=== PATIENT | male | born 1940 | race Two or more races ===

== ENCOUNTER 2016-11-19 10:30 | Outpatient (CLI) | payer OTHER, MEDICARE | END 2016-11-19 23:59 | disposition home or self-care (01) | LOC: WOU 10:30 | PROVIDERS: ATTEND Podiatrist Foot & Ankle Surgery | DX: L84 Corns and callosities (principal); B35.1 Tinea unguium; M20.5X2 Other deformities of toe(s) (acquired), left foot; R60.0 Localized edema; M79.672 Pain in left foot; Z79.01 Long term (current) use of anticoagulants; Z79.899 Other long term (current) drug therapy; Z96.651 Presence of right artificial knee joint; I48.91 Unspecified atrial fibrillation; Z82.3 Family history of stroke; Z82.61 Family history of arthritis; Z82.49 Family history of ischemic heart disease and other diseases of the circulatory system | CPT/HCPCS: G0463 ==

== ENCOUNTER 2016-11-21 12:34 | Outpatient (CLI) | payer OTHER, MEDICARE | END 2016-11-21 23:59 | disposition home or self-care (01) | LOC: RAD 12:34 | PROVIDERS: ATTEND Podiatrist Foot & Ankle Surgery | DX: M19.072 Primary osteoarthritis, left ankle and foot (principal); M77.32 Calcaneal spur, left foot; M21.42 Flat foot [pes planus] (acquired), left foot | CPT/HCPCS: 73630-TC ==

== ENCOUNTER 2016-11-26 11:18 | Outpatient (CLI) | payer OTHER, MEDICARE | END 2016-11-26 23:59 | disposition home or self-care (01) | LOC: WOU 11:18 | PROVIDERS: ATTEND Podiatrist Foot & Ankle Surgery | DX: M20.42 Other hammer toe(s) (acquired), left foot (principal); L84 Corns and callosities; I25.10 Atherosclerotic heart disease of native coronary artery without angina pectoris; R60.0 Localized edema; S93.115A Dislocation of interphalangeal joint of left lesser toe(s), initial encounter; X58.XXXA Exposure to other specified factors, initial encounter; Y92.89 Other specified places as the place of occurrence of the external cause | CPT/HCPCS: G0463 ==

== ENCOUNTER 2016-12-17 05:22 | Day surgery (SDC) | payer OTHER, MEDICARE ==
[2016-12-17] MEDS ORDERED: ANESTHESIA TRAY IN PYXIS 1 EA TRAY MC ONE (06:54)
[2016-12-17] MEDS ORDERED: FENTANYL PF 100MCG/2ML AMPUL ONE (07:17)
[2016-12-17] MEDS ORDERED: MIDAZOLAM HCL 2 MG/2ML VIAL ONE (07:18)
[2016-12-17] MEDS ORDERED: SUCCINYLCHOLINE CHLORIDE 20 MG/ML VIAL ONE (07:18)
[2016-12-17] MEDS ORDERED: LIDOCAINE 0.5%-EPI 1:200,000 50 ML VIAL ONE (07:31)
[2016-12-17] MEDS ORDERED: BUPIVACAINE 0.5 % PF 150 MG/30 ML VIAL ONE (07:31)
[2016-12-17] MEDS ORDERED: BACITRACIN ZINC OINT (15 GM) 15 GM TUBE TP ONE (08:39)
[2016-12-17] MEDS ORDERED: HYDROCODONE/APAP 5/325MG 1 EACH TABLET ONE (10:33)
[2016-12-17] MEDS ORDERED: HYDROCODONE/APAP 5/325MG 1 EACH TABLET PO PRN (11:30)
== END 2016-12-17 10:50 | disposition home or self-care (01) ==
LOC: DS 05:22
PROVIDERS: ATTEND Podiatrist Foot & Ankle Surgery
DX: M20.42 Other hammer toe(s) (acquired), left foot (principal); L84 Corns and callosities; M24.575 Contracture, left foot; M24.875 Other specific joint derangements left foot, not elsewhere classified; I48.91 Unspecified atrial fibrillation; I10 Essential (primary) hypertension
CPT/HCPCS: 28285; 28899; 93005; A4606; A6402 ×2; J0330; J0690; J2250; J3010; J3490 ×2

== ENCOUNTER 2016-12-24 13:00 | Outpatient (CLI) | payer OTHER, MEDICARE | END 2016-12-24 23:59 | disposition home or self-care (01) | LOC: WOU 13:00 | PROVIDERS: ATTEND Podiatrist Foot & Ankle Surgery | DX: Z47.89 Encounter for other orthopedic aftercare (principal); R60.0 Localized edema | CPT/HCPCS: A6402; G0463 ==

== ENCOUNTER 2016-12-31 12:57 | Outpatient (CLI) | payer OTHER, MEDICARE | END 2016-12-31 23:59 | disposition home or self-care (01) | LOC: WOU 12:57 | PROVIDERS: ATTEND Podiatrist Foot & Ankle Surgery | PROC: 2W5 Placement, Anatomical Regions, Removal (ICD-10-PCS; principal; 2016-12-31) | DX: T84.223A Displacement of internal fixation device of bones of foot and toes, initial encounter (principal); Y79.3 Surgical instruments, materials and orthopedic devices (including sutures) associated with adverse incidents; Y92.89 Other specified places as the place of occurrence of the external cause; I87.2 Venous insufficiency (chronic) (peripheral); R60.0 Localized edema; M20.42 Other hammer toe(s) (acquired), left foot | CPT/HCPCS: A6402; G0463 ==

== ENCOUNTER 2017-01-14 11:35 | Outpatient (CLI) | payer OTHER, MEDICARE | END 2017-01-14 23:59 | disposition home or self-care (01) | LOC: WOU 11:35 | PROVIDERS: ATTEND Podiatrist Foot & Ankle Surgery | DX: T81.89XA Other complications of procedures, not elsewhere classified, initial encounter (principal); L97.522 Non-pressure chronic ulcer of other part of left foot with fat layer exposed; Z96.698 Presence of other orthopedic joint implants | CPT/HCPCS: 11042; A6402 ==

== ENCOUNTER 2017-01-21 12:45 | Outpatient (CLI) | payer OTHER, MEDICARE | END 2017-01-21 23:59 | disposition home or self-care (01) | LOC: WOU 12:45 | PROVIDERS: ATTEND Podiatrist Foot & Ankle Surgery | DX: T81.89XA Other complications of procedures, not elsewhere classified, initial encounter (principal); L60.0 Ingrowing nail; R60.0 Localized edema; L60.3 Nail dystrophy | CPT/HCPCS: 11042; 11730; A6402 ==

== ENCOUNTER 2017-01-28 12:55 | Outpatient (CLI) | payer OTHER, MEDICARE | END 2017-01-28 23:59 | disposition home or self-care (01) | LOC: WOU 12:55 | PROVIDERS: ATTEND Podiatrist Foot & Ankle Surgery | DX: Z48.89 Encounter for other specified surgical aftercare (principal); R60.0 Localized edema | CPT/HCPCS: G0463 ==

== ENCOUNTER 2017-03-11 13:10 | Outpatient (CLI) | payer OTHER, MEDICARE | END 2017-03-11 23:59 | disposition home or self-care (01) | LOC: WOU 13:10 | PROVIDERS: ATTEND Podiatrist Foot & Ankle Surgery | DX: Z09 Encounter for follow-up examination after completed treatment for conditions other than malignant neoplasm (principal); R60.0 Localized edema | CPT/HCPCS: G0463 ==

== ENCOUNTER 2017-03-13 15:32 | Outpatient (CLI) | payer OTHER, MEDICARE | END 2017-03-13 23:59 | disposition home or self-care (01) | LOC: RAD 15:32 | PROVIDERS: ATTEND Podiatrist Foot & Ankle Surgery | DX: M20.42 Other hammer toe(s) (acquired), left foot (principal); M86.8X7 Other osteomyelitis, ankle and foot; M25.775 Osteophyte, left foot | CPT/HCPCS: 73630-TC ==

== ENCOUNTER 2017-04-09 11:05 | Outpatient (CLI) | payer OTHER, MEDICARE | END 2017-04-09 23:59 | disposition home or self-care (01) | LOC: WOU 11:05 | PROVIDERS: ATTEND Podiatrist Foot & Ankle Surgery | DX: Z47.89 Encounter for other orthopedic aftercare (principal); I87.302 Chronic venous hypertension (idiopathic) without complications of left lower extremity; L85.3 Xerosis cutis; B35.1 Tinea unguium | CPT/HCPCS: G0463 ==

== ENCOUNTER 2019-04-23 08:05 | Outpatient (CLI) | payer OTHER, MEDICARE ==
[2019-04-23 09:20] LABS: BASOPHILS # (AUTO) 0.1 /CMM (0.0-0.2); BASOPHILS % (AUTO) 0.9 % (0.0-2.0); EOSINOPHILS % (AUTO) 2.2 % (0.0-6.0); HEMATOCRIT 39 % (39-51); HEMOGLOBIN 13.1 g/dL (13.5-17.5); LYMPHOCYTES # (AUTO) 0.8 /CMM (0.8-4.8); LYMPHOCYTES % (AUTO) 11.6 % (20.0-44.0); MEAN CORPUSCULAR HGB CONC 34 g/dl (31.0-36.0); MEAN CORPUSCULAR VOLUME 94 fL (80-96); MONOCYTES # (AUTO) 0.7 /CMM (0.1-1.30); MONOCYTES % (AUTO) 10.2 % (2.0-12.0); NEUTROPHILS # (AUTO) 5.4 /CMM (1.8-8.9); NEUTROPHILS % (AUTO) 75.1 % (43.0-81.0); PLATELET COUNT (AUTO) 211 /CMM (150-450); RED BLOOD CELL COUNT(AUTO) 4.16 MIL/uL (4.5-6.0); WHITE BLOOD COUNT (AUTO) 7.2 K/uL (4.3-11.0)
[2019-04-23 09:39] LABS: ALBUMIN 3.4 g/dL (3.4-5.0)
[2019-04-23 09:47] LABS: C-REACTIVE PROTEIN 3.4 mg/dL (0.0-0.9)
== END 2019-04-23 23:59 | disposition home or self-care (01) ==
LOC: WOU 08:05
PROVIDERS: ATTEND Podiatrist Foot & Ankle Surgery
DX: I87.2 Venous insufficiency (chronic) (peripheral) (principal); L97.322 Non-pressure chronic ulcer of left ankle with fat layer exposed; L03.116 Cellulitis of left lower limb; R60.0 Localized edema; B35.1 Tinea unguium; Z96.651 Presence of right artificial knee joint; I48.91 Unspecified atrial fibrillation; Z79.01 Long term (current) use of anticoagulants
CPT/HCPCS: 11042; 36415; 82040; 83036; 85025; 85652; 86140; 87070; 87077; 87186; A6209

== ENCOUNTER 2019-04-30 09:20 | Outpatient (CLI) | payer OTHER, MEDICARE | END 2019-04-30 23:59 | disposition home or self-care (01) | LOC: WOU 09:20 | PROVIDERS: ATTEND Podiatrist Foot & Ankle Surgery | DX: I83.013 Varicose veins of right lower extremity with ulcer of ankle (principal); L97.312 Non-pressure chronic ulcer of right ankle with fat layer exposed; L03.116 Cellulitis of left lower limb; B96.20 Unspecified Escherichia coli [E. coli] as the cause of diseases classified elsewhere; Z79.01 Long term (current) use of anticoagulants; L60.0 Ingrowing nail; B35.1 Tinea unguium | CPT/HCPCS: 11042; A6209 ==

== ENCOUNTER 2019-05-04 09:07 | Outpatient (CLI) | payer OTHER, MEDICARE | END 2019-05-04 23:59 | disposition home or self-care (01) | LOC: WOU 09:07 | PROVIDERS: ATTEND Podiatrist Foot & Ankle Surgery | DX: I87.2 Venous insufficiency (chronic) (peripheral) (principal); L97.322 Non-pressure chronic ulcer of left ankle with fat layer exposed; L03.116 Cellulitis of left lower limb; R60.0 Localized edema; Z79.01 Long term (current) use of anticoagulants | CPT/HCPCS: 11042; A6209 ==

== ENCOUNTER 2019-05-11 09:17 | Outpatient (CLI) | payer OTHER, MEDICARE | END 2019-05-11 23:59 | disposition home or self-care (01) | LOC: WOU 09:17 | PROVIDERS: ATTEND Podiatrist Foot & Ankle Surgery | DX: I87.312 Chronic venous hypertension (idiopathic) with ulcer of left lower extremity (principal); L97.322 Non-pressure chronic ulcer of left ankle with fat layer exposed; L03.116 Cellulitis of left lower limb; B96.20 Unspecified Escherichia coli [E. coli] as the cause of diseases classified elsewhere; I87.2 Venous insufficiency (chronic) (peripheral); Z79.01 Long term (current) use of anticoagulants | CPT/HCPCS: 11042; A6209 ==

== ENCOUNTER 2019-05-18 09:30 | Outpatient (CLI) | payer OTHER, MEDICARE | END 2019-05-18 23:59 | disposition home or self-care (01) | LOC: WOU 09:30 | PROVIDERS: ATTEND Podiatrist Foot & Ankle Surgery | DX: I87.2 Venous insufficiency (chronic) (peripheral) (principal); L97.322 Non-pressure chronic ulcer of left ankle with fat layer exposed; L60.0 Ingrowing nail; Z79.01 Long term (current) use of anticoagulants | CPT/HCPCS: 11042; A6209 ==

== ENCOUNTER 2019-05-25 09:15 | Outpatient (CLI) | payer OTHER, MEDICARE | END 2019-05-25 23:59 | disposition home or self-care (01) | LOC: WOU 09:15 | PROVIDERS: ATTEND Podiatrist Foot & Ankle Surgery | DX: I87.2 Venous insufficiency (chronic) (peripheral) (principal); L97.322 Non-pressure chronic ulcer of left ankle with fat layer exposed; R60.0 Localized edema; Z79.01 Long term (current) use of anticoagulants | CPT/HCPCS: 11042; A6209 ==

== ENCOUNTER 2019-06-01 09:25 | Outpatient (CLI) | payer OTHER, MEDICARE | END 2019-06-01 23:59 | disposition home or self-care (01) | LOC: WOU 09:25 | PROVIDERS: ATTEND Podiatrist Foot & Ankle Surgery | DX: I87.2 Venous insufficiency (chronic) (peripheral) (principal); L97.322 Non-pressure chronic ulcer of left ankle with fat layer exposed; L97.422 Non-pressure chronic ulcer of left heel and midfoot with fat layer exposed; R60.0 Localized edema; Z79.01 Long term (current) use of anticoagulants | CPT/HCPCS: 11042; A6209 ==

== ENCOUNTER 2019-06-08 09:22 | Outpatient (CLI) | payer OTHER, MEDICARE | END 2019-06-08 23:59 | disposition home or self-care (01) | LOC: WOU 09:22 | PROVIDERS: ATTEND Podiatrist Foot & Ankle Surgery | DX: I87.2 Venous insufficiency (chronic) (peripheral) (principal); L97.528 Non-pressure chronic ulcer of other part of left foot with other specified severity; R60.0 Localized edema; Z79.01 Long term (current) use of anticoagulants | CPT/HCPCS: G0463 ==

== ENCOUNTER 2019-06-15 09:20 | Outpatient (CLI) | payer OTHER, MEDICARE | END 2019-06-15 23:59 | disposition home or self-care (01) | LOC: WOU 09:20 | PROVIDERS: ATTEND Podiatrist Foot & Ankle Surgery | DX: I87.2 Venous insufficiency (chronic) (peripheral) (principal); B35.1 Tinea unguium; Z79.01 Long term (current) use of anticoagulants | CPT/HCPCS: G0463 ==

== ENCOUNTER 2019-07-20 09:30 | Outpatient (CLI) | payer MEDICARE, OTHER | END 2019-07-20 23:59 | disposition home or self-care (01) | LOC: WOU 09:30 | PROVIDERS: ATTEND Podiatrist Foot & Ankle Surgery | DX: I87.2 Venous insufficiency (chronic) (peripheral) (principal); B35.1 Tinea unguium; R60.1 Generalized edema; M79.675 Pain in left toe(s); M79.674 Pain in right toe(s); Z79.01 Long term (current) use of anticoagulants | CPT/HCPCS: G0463 ==

== ENCOUNTER 2019-08-10 09:17 | Outpatient (CLI) | payer OTHER | END 2019-08-10 23:59 | disposition home or self-care (01) | LOC: WOU 09:17 | PROVIDERS: ATTEND Podiatrist Foot & Ankle Surgery | DX: I87.312 Chronic venous hypertension (idiopathic) with ulcer of left lower extremity (principal); L97.328 Non-pressure chronic ulcer of left ankle with other specified severity; I87.2 Venous insufficiency (chronic) (peripheral); Z79.01 Long term (current) use of anticoagulants; R60.0 Localized edema; B35.1 Tinea unguium; Z96.651 Presence of right artificial knee joint | CPT/HCPCS: 99215; A6209; G0463 ==

== ENCOUNTER 2019-08-17 09:26 | Outpatient (CLI) | payer OTHER | END 2019-08-17 23:59 | disposition home or self-care (01) | LOC: WOU 09:26 | PROVIDERS: ATTEND Podiatrist Foot & Ankle Surgery | DX: I87.312 Chronic venous hypertension (idiopathic) with ulcer of left lower extremity (principal); L97.328 Non-pressure chronic ulcer of left ankle with other specified severity; I87.2 Venous insufficiency (chronic) (peripheral); R60.1 Generalized edema; B35.1 Tinea unguium; M79.675 Pain in left toe(s); M79.674 Pain in right toe(s); Z79.01 Long term (current) use of anticoagulants | CPT/HCPCS: 99214; A6209; G0463 ==

== ENCOUNTER 2019-09-21 09:30 | Outpatient (CLI) | payer OTHER | END 2019-09-21 23:59 | disposition home or self-care (01) | LOC: WOU 09:30 | PROVIDERS: ATTEND Podiatrist Foot & Ankle Surgery | DX: I87.2 Venous insufficiency (chronic) (peripheral) (principal); L60.0 Ingrowing nail; R60.0 Localized edema; B35.1 Tinea unguium; M79.675 Pain in left toe(s); M79.674 Pain in right toe(s); Z79.01 Long term (current) use of anticoagulants | CPT/HCPCS: 11730 ==

== ENCOUNTER 2019-10-05 09:30 | Outpatient (CLI) | payer OTHER ==
[2019-10-05] MEDS ORDERED: SILVER NITRATE APPLICATOR 1 EA BOX ONE (09:41)
== END 2019-10-05 23:59 | disposition home or self-care (01) ==
LOC: WOU 09:30
PROVIDERS: ATTEND Podiatrist Foot & Ankle Surgery
DX: S91.312A Laceration without foreign body, left foot, initial encounter (principal); X58.XXXA Exposure to other specified factors, initial encounter; Y92.89 Other specified places as the place of occurrence of the external cause; I87.2 Venous insufficiency (chronic) (peripheral); R60.1 Generalized edema; B35.1 Tinea unguium; M79.675 Pain in left toe(s); M79.674 Pain in right toe(s); Z79.01 Long term (current) use of anticoagulants
CPT/HCPCS: 11042; A6209

== ENCOUNTER 2019-11-02 09:30 | Outpatient (CLI) | payer OTHER, MEDICARE | END 2019-11-02 23:59 | disposition home or self-care (01) | LOC: WOU 09:30 | PROVIDERS: ATTEND Podiatrist Foot & Ankle Surgery | DX: I87.2 Venous insufficiency (chronic) (peripheral) (principal); L84 Corns and callosities; L60.0 Ingrowing nail; R60.1 Generalized edema; M79.672 Pain in left foot; M79.675 Pain in left toe(s); M79.674 Pain in right toe(s); Z79.01 Long term (current) use of anticoagulants | CPT/HCPCS: G0463 ==

== ENCOUNTER 2020-09-06 12:48 | Outpatient (CLI) | payer MEDICARE, BC ==
[2020-09-06] MEDS ORDERED: MUPIROCIN 2% CREAM 15 GM TUBE TP ONE (13:33)
== END 2020-09-06 23:59 | disposition home or self-care (01) ==
LOC: WOU 12:48
PROVIDERS: ATTEND Podiatrist Foot & Ankle Surgery
DX: L60.0 Ingrowing nail (principal); I87.2 Venous insufficiency (chronic) (peripheral); B35.1 Tinea unguium; L84 Corns and callosities; M79.672 Pain in left foot; M79.674 Pain in right toe(s)
CPT/HCPCS: 11730

== ENCOUNTER 2020-09-13 12:30 | Outpatient (CLI) | payer MEDICARE, BC | END 2020-09-13 23:59 | disposition home or self-care (01) | LOC: WOU 12:30 | PROVIDERS: ATTEND Podiatrist Foot & Ankle Surgery | DX: I87.2 Venous insufficiency (chronic) (peripheral) (principal); L60.0 Ingrowing nail; L84 Corns and callosities; M79.672 Pain in left foot; M79.671 Pain in right foot; R60.1 Generalized edema; Z79.01 Long term (current) use of anticoagulants | CPT/HCPCS: G0463 ==

== ENCOUNTER 2020-11-15 12:48 | Outpatient (CLI) | payer MEDICARE, BC ==
[2020-11-15] MEDS ORDERED: BACI/NEOM/POLY B OINT PKT 1 UDPKT PACKET ONE (14:03)
== END 2020-11-15 23:59 | disposition home or self-care (01) ==
LOC: WOU 12:48
PROVIDERS: ATTEND Podiatrist Foot & Ankle Surgery
DX: L60.0 Ingrowing nail (principal); I87.2 Venous insufficiency (chronic) (peripheral); R60.1 Generalized edema; L84 Corns and callosities; M79.672 Pain in left foot; M79.671 Pain in right foot; M79.674 Pain in right toe(s)
CPT/HCPCS: 11730; J3490

== ENCOUNTER 2020-12-06 12:55 | Outpatient (CLI) | payer MEDICARE, BC | END 2020-12-06 23:59 | disposition home or self-care (01) | LOC: WOU 12:55 | PROVIDERS: ATTEND Podiatrist Foot & Ankle Surgery | DX: I87.2 Venous insufficiency (chronic) (peripheral) (principal); L84 Corns and callosities; L60.0 Ingrowing nail; M21.622 Bunionette of left foot; R60.1 Generalized edema; M79.672 Pain in left foot; M79.671 Pain in right foot; Z79.01 Long term (current) use of anticoagulants | CPT/HCPCS: G0463 ==

== ENCOUNTER 2021-03-14 12:40 | Outpatient (CLI) | payer MEDICARE, BC | END 2021-03-14 23:59 | disposition home or self-care (01) | LOC: WOU 12:40 | PROVIDERS: ATTEND Podiatrist Foot & Ankle Surgery | DX: I87.2 Venous insufficiency (chronic) (peripheral) (principal); L60.0 Ingrowing nail; L84 Corns and callosities; M79.672 Pain in left foot; M79.674 Pain in right toe(s); R60.1 Generalized edema; Z79.01 Long term (current) use of anticoagulants | CPT/HCPCS: G0463 ==

== ENCOUNTER 2021-04-11 12:50 | Outpatient (CLI) | payer MEDICARE, BC | END 2021-04-11 23:59 | disposition home or self-care (01) | LOC: WOU 12:50 | PROVIDERS: ATTEND Podiatrist Foot & Ankle Surgery | DX: I87.2 Venous insufficiency (chronic) (peripheral) (principal); R60.1 Generalized edema; M79.674 Pain in right toe(s); B35.1 Tinea unguium; Z79.01 Long term (current) use of anticoagulants | CPT/HCPCS: 87102; G0463 ==

== ENCOUNTER 2021-05-09 13:20 | Outpatient (CLI) | payer MEDICARE, BC | END 2021-05-09 23:59 | disposition home or self-care (01) | LOC: WOU 13:20 | PROVIDERS: ATTEND Podiatrist Foot & Ankle Surgery | DX: I87.2 Venous insufficiency (chronic) (peripheral) (principal); B35.1 Tinea unguium; L60.0 Ingrowing nail; L84 Corns and callosities; M79.672 Pain in left foot; M79.674 Pain in right toe(s); Z79.01 Long term (current) use of anticoagulants | CPT/HCPCS: G0463 ==

== ENCOUNTER 2021-06-06 12:38 | Outpatient (CLI) | payer MEDICARE, BC ==
[2021-06-06] MEDS ORDERED: SILVER NITRATE APPLICATOR 1 EA BOX ONE (13:56)
[2021-06-06 15:37] LABS: BASOPHILS % (AUTO) 0.7 % (0.0-2.0); EOSINOPHILS % (AUTO) 1.2 % (0.0-6.0); HEMATOCRIT 43 % (39-51); HEMOGLOBIN 14.2 g/dL (13.5-17.5); LYMPHOCYTES # (AUTO) 1.2 K/uL (0.8-4.8); LYMPHOCYTES % (AUTO) 17.5 % (20.0-44.0); MEAN CORPUSCULAR HGB CONC 34 g/dl (31.0-36.0); MEAN CORPUSCULAR VOLUME 93 fL (80-96); MONOCYTES # (AUTO) 0.8 K/uL (0.1-1.30); MONOCYTES % (AUTO) 11.3 % (2.0-12.0); NEUTROPHILS # (AUTO) 4.9 K/uL (1.8-8.9); NEUTROPHILS % (AUTO) 69.3 % (43.0-81.0); PLATELET COUNT (AUTO) 202 K/uL (150-450); RED BLOOD CELL COUNT(AUTO) 4.55 MIL/uL (4.5-6.0)
[2021-06-06 15:49] LABS: ALBUMIN 3.6 g/dL (3.4-5.0); BILIRUBIN,DIRECT 0.1 mg/dL (0.0-0.2); BILIRUBIN,TOTAL 0.4 mg/dL (0.2-1.0); TOTAL PROTEIN, SERUM 6.7 g/dL (6.4-8.2)
== END 2021-06-06 23:59 | disposition home or self-care (01) ==
LOC: WOU 12:38
PROVIDERS: ATTEND Podiatrist Foot & Ankle Surgery
DX: B35.1 Tinea unguium (principal); I87.2 Venous insufficiency (chronic) (peripheral); L84 Corns and callosities; R60.0 Localized edema; M79.672 Pain in left foot; Z79.01 Long term (current) use of anticoagulants
CPT/HCPCS: 36415; 80076; 85025; G0463

== ENCOUNTER 2021-07-11 12:49 | Outpatient (CLI) | payer MEDICARE, BC | END 2021-07-11 23:59 | disposition home or self-care (01) | LOC: WOU 12:49 | PROVIDERS: ATTEND Podiatrist Foot & Ankle Surgery | DX: B35.1 Tinea unguium (principal); I87.2 Venous insufficiency (chronic) (peripheral); R60.0 Localized edema; M79.674 Pain in right toe(s) | CPT/HCPCS: G0463 ==

== ENCOUNTER → 2021-10-24 | Outpatient (CLI) | payer MEDICARE, BC | END | disposition home or self-care (01) | LOC: WOU 12:50 | PROVIDERS: ATTEND Podiatrist Foot & Ankle Surgery | DX: I87.2 Venous insufficiency (chronic) (peripheral) (principal); B35.1 Tinea unguium; R60.0 Localized edema; M79.672 Pain in left foot; M79.674 Pain in right toe(s) | CPT/HCPCS: G0463 ==

== ENCOUNTER 2022-01-01 11:40 | Outpatient (CLI) | payer MEDICARE, BC | END 2022-01-01 23:59 | disposition home or self-care (01) | LOC: WOU 11:40 | PROVIDERS: ATTEND Podiatrist Foot & Ankle Surgery | DX: B35.1 Tinea unguium (principal); I87.2 Venous insufficiency (chronic) (peripheral); R60.0 Localized edema; M79.675 Pain in left toe(s); M79.674 Pain in right toe(s); Z96.651 Presence of right artificial knee joint; I48.91 Unspecified atrial fibrillation | CPT/HCPCS: G0463 ==

== ENCOUNTER 2022-04-10 13:38 | Outpatient (CLI) | payer MEDICARE, BC ==
[2022-04-10] MEDS ORDERED: SILVER NITRATE APPLICATOR 1 EA BOX ONE (14:12)
== END 2022-04-10 23:59 | disposition home or self-care (01) ==
LOC: WOU 13:38
PROVIDERS: ATTEND Podiatrist Foot & Ankle Surgery
DX: B35.1 Tinea unguium (principal); R60.0 Localized edema; L60.2 Onychogryphosis; I87.2 Venous insufficiency (chronic) (peripheral); M79.675 Pain in left toe(s); M79.674 Pain in right toe(s)
CPT/HCPCS: 88304-TC; 88311-TC; 88313-TC

== ENCOUNTER 2022-04-24 13:43 | Outpatient (CLI) | payer MEDICARE, BC | END 2022-04-24 23:59 | disposition home or self-care (01) | LOC: WOU 13:43 | PROVIDERS: ATTEND Podiatrist Foot & Ankle Surgery | DX: L84 Corns and callosities (principal); L60.2 Onychogryphosis; L60.3 Nail dystrophy; I87.2 Venous insufficiency (chronic) (peripheral); R60.0 Localized edema; M79.675 Pain in left toe(s); M79.674 Pain in right toe(s) | CPT/HCPCS: G0463 ==